=== PATIENT | female | born 1970 | race American Indian/Alaskan Native ===

== ENCOUNTER 2019-06-18 08:03 | Day surgery (SDC) | payer OTHER ==
[2019-06-18] MEDS ORDERED: ZOFRAN IV PRN (09:26)
--- NOTE | 2019-06-18 09:27 | Anesthesia Day of Surgery ---
Anesthesia Day of Surgery - Day of Surgery Patient Examined: Yes Patient H&P Reviewed: Yes Patient is NPO: Yes
--- NOTE | 2019-06-18 09:32 | Anesthesia Consultation ---
Anesthesia Consult and Med Hx Date of service: 06/18/19 - Airway Anesthetic Teeth Evaluation: Chipped ROM Head & Neck: Adequate Mental/Hyoid Distance: Adequate Mallampati Class: Class II Intubation Access Assessment: Probably Good - Pre-Operative Health Status ASA Pre-Surgery Classification: ASA2 Proposed Anesthetic Plan: General - Pulmonary Hx Sleep Apnea: Yes (mild) - Central Nervous System Hx Psychiatric Problems: Yes (Anxiety) - Hematic Hx Sickle Cell Disease: No - Other Systems Hx Alcohol Use: Yes - Additional Comments Anesthesia Medical History Comments: +Medical Clearance
[2019-06-18] MEDS ORDERED: LACTATED RINGERS 1,000 ML IV SCH (10:00)
[2019-06-18] MEDS ORDERED: VERSED IV NR (10:00)
[2019-06-18] MEDS ORDERED: SILVER NITRATE TP ONE (11:17)
[2019-06-18] MEDS ORDERED: MONSEL'S TP ONE ×2 (11:20→13:27)
[2019-06-18] MEDS ORDERED: DIPRIVAN 10 MG/ML IV ONE (11:38)
[2019-06-18] MEDS ORDERED: XYLOCAINE MPF 2% ONE (11:38)
[2019-06-18] MEDS ORDERED: DECADRON ONE (11:39)
[2019-06-18] MEDS ORDERED: ZOFRAN ONE (11:39)
[2019-06-18] MEDS ORDERED: SUBLIMAZE ONE ×2 (11:40→13:39)
[2019-06-18] MEDS ORDERED: NACL 0.9% IR ONE ×2 (12:05)
[2019-06-18] MEDS: SUBLIMAZE IV PRN ×3 (13:36→14:22)
[2019-06-18 18:02] VITALS: BP 115/62
--- NOTE | 2019-06-18 19:10 | Post Anesthesia Evaluation ---
- Post Anesthesia Evaluation Patient Participated: Yes Airway Patent: Yes Stable Respiratory Function: Yes Nausea/Vomiting: No Temp > 96.8F: Yes Pain Manageable: Yes Adequeate Hydration: Yes Anesthesia Complications: No Block Receding Appropriately: Not Applicable Patient on Ventilator: No
--- NOTE | 2019-06-19 14:59 | Operative Report ---
Operative Report Operative Report: Preoperative diagnosis: 1. Abnormal uterine bleeding. 2. Thickened endometrium. 3. Uterine myomae. Postoperative diagnosis: same as preoperative diagnosis. Procedure: 1. Hysteroscopy. 2. D&C 3. Uterine myomae. Surgeon: Dr. [employer] Specialist: none Anesthesia: IV sedation with MAC. EBL: minimal IVF: RL 1 liter Complications: none Procedure details: The risks, benefits, and alternatives of the procedure were discussed in detail with the patient which included but not limited to infection, hemorrhage requiring a, and uterine perforation. The patient expressed understanding, her questions answered, and she gave informed consent. The patient was taken to the operating room with an IVF infusing Ringer's lactate. In the operating room, she was placed in the dorsal supine position and given IV sedation with MAC. Then, she was placed on the stirrups in a dorsal lithotomy position. The perineum vagina and cervix were washed and she was prepared and draped in the usual sterile fashion. Examination under anesthesia revealed normal external genitalia and vagina. The cervix was deviated to the left and was closed, long, posterior with mild bleeding at the os. The uterus was enlarged to 26-week size with irregular countour and mobile, the adnexae were nonpalpable. A weighted speculum was placed placed on the posterior vaginal wall. The anterior lip of the cervix was grasped with a single-tooth tenaculum. Endocervical curettage was done. The cervical os was dilated and the hysteroscope was introduced into the uterine cavity. It revealed thickened endometrial lining.. The ostia were not visualized. The hysteroscope was removed from the uterine cavity. A gentle curettage was per formed and small polyps were removed until a gritty texture was noticed. The specimen which consisted of ECC and EMC was sent to pathology. The instruments were removed from the cervix and vagina. The count of laps, needles, sponges, and instrument were correct 2. The patient tolerated the procedure well. She was awakened from the anesthesia and taken to the recovery room in a stable condition.
== END 2019-06-18 15:15 | disposition home or self-care (01) ==
LOC: OR 08:03
PROVIDERS: ATTEND Obstetrics & Gynecology
DX: N85.8 Other specified noninflammatory disorders of uterus (principal); N93.8 Other specified abnormal uterine and vaginal bleeding; R93.89 Abnormal findings on diagnostic imaging of other specified body structures; G47.30 Sleep apnea, unspecified; F41.9 Anxiety disorder, unspecified; Z79.899 Other long term (current) drug therapy; Z72.89 Other problems related to lifestyle
CPT/HCPCS: 58558; 88305; A4217; J1100; J2250; J2405; J2704; J3010; J7120